=== PATIENT | male | born 1950 | race Caucasian/White ===

== ENCOUNTER → 2016-07-26 | Outpatient (CLI) | payer MEDICARE, BC ==
[~2016-07-26] MED LIST: ACET-2890 PO; ASPI-917 PO; CHOL20002 PO; GABA-305 PO; MELO-267 PO; MULT1TAB69 PO; OXYC5TAB84 PO
--- NOTE | 2016-07-26 12:41 | DI ---
Indication: ITS.REASON: M25.552 LEFT HIP PAIN PROCEDURE: CT PELVIS W/O CONTRAST: Encounter: Initial Comparison: None Technique: Axial noncontrast CT imaging through the pelvis with coronal and sagittal two-dimensional reformats. Automated Exposure Control and Iterative Reconstruction dose reducing techniques were utilized. Findings: Exam is performed for prosthetic planning purposes. There is degenerative change in the visualized lower lumbar spine with a large small node deforming the inferior endplate of L4. Mild degenerative change in the sacroiliac joints. No acute fracture. Severe osteoarthritis in the left hip with a [id number] appearance, subchondral sclerosis and cyst formation with flattening and deformity of the left femoral head. Degenerative change in the acetabulum on the left as well. Right hip joint space is maintained with very minimal degenerative change present. No lytic or blastic osseous lesions appreciated. The visualized portions of the knees show a left knee replacement causing metallic artifact. Impression: Planning CT as above. .
== END ==
LOC: IMA 11:14
PROVIDERS: ATTEND Orthopaedic Surgery
DX: M16.12 Unilateral primary osteoarthritis, left hip (principal); M51.36 Other intervertebral disc degeneration, lumbar region; M53.3 Sacrococcygeal disorders, not elsewhere classified; Z96.652 Presence of left artificial knee joint; M25.552 Pain in left hip

== ENCOUNTER 2016-08-08 08:02 | Inpatient (IN) ==
[2016-08-09] MEDS ORDERED: SALINE FLUSH 10ml SYRINGE IVF PRN (10:54)
== END 2016-08-09 13:50 | disposition home or self-care (01) | DRG 470 ==
LOC: SRG 08:02
PROVIDERS: ADMIT Orthopaedic Surgery; ATTEND Orthopaedic Surgery

== ENCOUNTER 2016-12-26 07:30 | Inpatient (IN) ==
[~2016-12-26 07:30] MED LIST changes: -ACET-2890 PO; +ACETAMINOPHEN 500 MG TABLET PO ONE; -ASPI-917 PO; -CHOL20002 PO; +DEXAMETHASONE 4 MG/ML INJECTION IVP ONE; +FAMOTIDINE PB 20 MG/50 ML BAG IV ONE; -GABA-305 PO; +LIDOCAINE 1% (10mg/ml) 2mL INJ PF SDV ID ONE; -MELO-267 PO; +METOCLOPRAMIDE 10mg/2ml INJECTION IVP ONE; -MULT1TAB69 PO; +NOZIN NASAL SWAB NAS ONE; +ONDANSETRON 4 MG/2 ML INJECTION IVP ONE; -OXYC5TAB84 PO; +TRANEXAMIC ACID 1,000 MG in NS 100 ML IV ONE
[2016-12-26] MEDS ORDERED: EPINEPHrine 0.25 MG, BUPIVACAINE 0.25% PF 30 ML, MORPHINE SULFATE 15 MG, KETOROLAC INJ ... OPSITE ONE (08:00)
[2016-12-26 08:20] VITALS: BMI 41.8
[2016-12-26] MEDS ORDERED: CEFAZOLIN 1 G INJECTION IVP ONE (08:51)
[2016-12-26] MEDS: LR 1,000 ML IV SCH ×2 (09:10→11:20)
--- NOTE | 2016-12-26 09:37 | Anesthesia Preoperative Report ---
Anesthesia Preoperative Record - Date and Time Date: 12/26/16 Preoperative Diagnosis: Rt DEBORAH (RA) M16.11 NPO Since Date: 12/25/16 NPO Since Time: 00:00 Allergies/Adverse Reactions: Allergies Allergy/AdvReac Type Severity Reaction Status Date / Time No Known Allergies Allergy Verified 12/13/16 11:33 - Vital Signs Vital Signs: Temperature 98.7 F 12/26/16 08:20 Pulse Rate 53 L 12/26/16 08:36 Respiratory Rate 20 12/26/16 08:20 Blood Pressure 159/67 H 12/26/16 08:20 Pulse Oximetry 97 12/26/16 08:20 Height and Weight: Height 1.73 m Weight 125 kg Body Mass Index 41.8 - Medications Inpatient Medications: Current Medications Lactated Ringer's (Lactated Ringers) 1,000 mls @ 50 mls/hr IV .Q20H NICHOLAS Last Admin: 12/26/16 09:10 Dose: 50 mls/hr Epinephrine HCl 0.25 mg/Bupivacaine HCl 30 ml/Morphine Sulfate 15 mg/Ketorolac Tromethamine 60 mg/Sodium Chloride 65.25 mls @ 1 mls/hr OPSITE INTRAOP ONE PRN Reason: Protocol Stop: 12/29/16 01:14 Sodium Chloride (Iv Flush) 10 - 80 ml IV PRN PRN PRN Reason: Flushing Home Medications: Home Medications Medication Instructions Recorded Confirmed Type Gabapentin 1 tab PO QID #0 05/11/16 12/26/16 History Multivitamin [Multivitamins] 1 tab PO DAILY #0 05/11/16 12/26/16 History Cholecalciferol (Vitamin D3) 4,000 unit PO DAILY #0 05/16/16 12/26/16 History [Vitamin D3] Mapap ES 500 mg capsule 500 mg PO Q6H PRN 09/20/16 12/26/16 History aspirin 81 mg tablet,delayed 81 mg PO DAILY tab 09/20/16 12/25/16 History release Is Patient on Beta Bette?: No - Medical History Respiratory: Reports: Sleep Apnea (uses CPAP) Cardiovascular: Reports: Hypertension (pre op) Gastrointestional: Reports: Morbid Obesity (BMI 41.9) Neuro/Musculoskeletal: Reports: Back Problems (arthritis), Other (neuropathy, history of OA. ) - Surgical History Respiratory Surgery/Treatments: Reports: CPAP Use GI Surgery/Treatments: Reports: Appendectomy, Cholecystectomy Musculoskeletal Surgery/Tx: Reports: Total Hip Replacement (left DEBORAH ), Total Knee Replacement (left TKA) Anesthesia Reactions: Other (collapse lung under general anesthesia.) Hx Family Anesthesia Reaction: No History of Motion Sickness: No - Social History Smoking Status: Never smoker Hx Chewing Tobacco Use: No Second Hand Exposure: No Substance Use Type: does not use Alcohol Intake Frequency: does not drink - Pertinent Findings EKG: Sinus Bradycardia - Physical Exam Respiratory Exam: Present: lungs clear Cardiovascular Exam: Present: regular rate and rhythm - Airway Assessment Mallampati Score: III TMD: 3 Fingerbreadths Neck Extension: poor (short thick neck) Teeth: chipped teeth/crowns Adult Head Mouth w/Numbe Teeth: 1 - chipped Overall Assessment: may be difficult mask vent (facial hair), may be difficult intubation (morbidly obese) - ASA ASA Score: 3 - Plan Plan: SAB vs GA Anesthesia: General Inhalation Gases, Neuroaxial - Discussion Discussion: Discussed risks/options/alternatives of anesthesia and questions answered. Patient consents. Nursing pain assessment noted. Present for Discussion: family member Attestation Statement: Prior to the delivery of any anesthetic medication, I examined the patient, developed the plan, obtained the patient's consent and discussed the risk and benefits of the procedure with the patient/guardian. - Additional Information Seen by Anesthesia: Yes
[2016-12-26] MEDS ORDERED: VANCOMYCIN 1,000 MG INJECTION ONE (09:47)
[2016-12-26] MEDS ORDERED: MIDAZOLAM 2mg/2ml INJECTION ONE (10:06)
[2016-12-26] MEDS ORDERED: FentaNYL 100 MCG/2 ML INJECTION ONE (10:06)
[2016-12-26] MEDS ORDERED: PROPOFOL 500 MG/50 ML VIAL IV ONE ×3 (10:07→11:43)
[2016-12-26] MEDS ORDERED: VANCOMYCIN 1,000 MG INJECTION IAR ONE (11:56)
[2016-12-26] MEDS ORDERED: ONDANSETRON 4 MG/2 ML INJECTION IVP PRN ×2 (12:07→13:03)
[2016-12-26] MEDS ORDERED: HYDROMORPHONE 2 MG/ML INJECTION IVP PRN (12:07)
--- NOTE | 2016-12-26 12:09 | Operative Note ---
- Procedure Preoperative Diagnosis: Right hip primary degenerative joint disease Postoperative Diagnosis: Same as preoperative diagnosis. Surgeon: Sunshine Soares MD Records Analysis Manager: Vic Reyes Complications: None. Anesthesia: Spinal. Estimated Blood Loss: See Anesthesia Record. Fluids: Please see Anesthesia Record. Description of Procedure: Mr. Torres and his right hip were identified and marked in the preoperative holding area. He was brought back to the operating suite and spinal anesthetic was administered. He was then placed in a lateral decubitus position with his right hip up. The right lower extremity was prepped and draped in my normal sterile fashion. Timeout was performed. The [employer] robotic arm was used to assist with the surgery. A pelvic array was placed into the iliac crest through three 1 cm incisions. A posterior approach was utilized. An approximately 15 cm incision was made in the skin and dissection carried down to the muscle fascia which was then split in line with skin incision. A checkpoint was placed in the greater trochanter. The short external rotators were identified and tagged and detached. A capsulotomy was performed and the hip dislocated. A femoral neck osteotomy was performed at the pre-templated level measuring down from the femoral head 60 mm. The head was removed and acetabulum exposed. Labrum was removed. The acetabulum was then registered with the robot. The robotic arm was then used to ream with a 53 reamer. The robot then was again used to place a 54 Trident cup in 40 of tilt and 25 of anteversion. A liner was then placed. The proximal femur was exposed and prepared with a cookie cutter followed by reaming and broaching to a size 4. We trialed with a 2.5 Head. After thorough irrigation a final Accolade 2 size 4 stem with 127 neck was placed it sat a little proud so we downsized the head. Leg length and offset were checked with the robot and were good. A final 0 ceramic head was placed and the hip reduced. Betadine solution was used to irrigate throughout the case. It was followed by normal saline irrigation. Joint cocktail was injected throughout soft tissue. The capsulotomy was repaired with Ethibond. Short external rotators were also repaired with Ethibond. 1 g of vancomycin powder was placed into the wound. The muscle fascia was then repaired with #1 Vicryl. I then left my school psychologist assistant to close the subcutaneous tissue with 2-0 Vicryl followed by running 4-0 Monocryl skin followed by Dermabond and a sterile dressing. The patient with any placed back into supine position and taken to recovery room in the care of anesthesia.
[2016-12-26] MEDS ORDERED: LORazepam 1 MG TABLET PO PRN (13:03)
[2016-12-26] MEDS ORDERED: NAPROXEN 220 MG TABLET PO PRN (13:03)
[2016-12-26] MEDS ORDERED: DiphenhydrAMINE 50 MG/ML INJECTION IVP PRN (13:03)
[2016-12-26] MEDS ORDERED: NOZIN NASAL SWAB NAS ONE (13:03)
[2016-12-26] MEDS ORDERED: DiphenhydrAMINE 25 MG CAPSULE PO PRN (13:03)
--- NOTE | 2016-12-26 13:14 | Anesthesia Postoperative Note ---
- Date and Time Date: 12/26/16 Time: 13:12 - Status Patient Participated in Evaluation: Patient Participated in Person Vital Signs: Temperature 97.0 F 12/26/16 13:06 Pulse Rate 68 12/26/16 13:06 Respiratory Rate 16 12/26/16 13:06 Blood Pressure 152/66 H 12/26/16 13:06 Pulse Oximetry 98 12/26/16 13:06 Respiratory Function: Airway Patent, Regular Respirations Cardiovascular Function: Regular Pulse Mental Status: Alert and Oriented Pain Intensity: 0 Hydration: IV Infusing Complications During Recover: None Apparent Post Anesthesia Care Notes: block level at L4-5 - Follow-Up Instructions Instructions: Per Surgeon
[2016-12-26] MEDS: ACETAMINOPHEN 325 MG TABLET PO SCH ×3 (13:26→20:04)
[2016-12-26] MEDS: GABAPENTIN 600 MG TABLET PO SCH ×3 (13:27→20:05)
[2016-12-26] MEDS: NS 1,000 ML IV SCH (13:32)
[2016-12-26] MEDS ORDERED: FALL RISK - PHARMACY CONSULT XX ONE (13:53)
[2016-12-26] MEDS ORDERED: SALINE FLUSH 10ml SYRINGE IV PRN (14:05)
[2016-12-26] MEDS: NOZIN NASAL SWAB NAS SCH ×3 (14:45→23:37)
--- NOTE | 2016-12-26 15:00 | XRay Report ---
Indication: postoperative image PROCEDURE: XR pelvis w/ 1 view RT hip: Encounter: Initial Comparison: Pelvis radiograph dated September 20, 2016 Findings: Postoperative changes of right total hip replacement are seen. There is expected postoperative subcutaneous gas. No evidence of hardware failure or acute fracture. No retained radiopaque surgical instruments or sponges seen. Existing left hip prosthesis appears stable. Impression: New right total hip prosthesis without evidence of immediate complication. .
[2016-12-26] MEDS: Oxycodone *IR* 5 MG TABLET PO PRN ×2 (16:41→22:46)
[2016-12-26] MEDS: CEFAZOLIN 2 G in NS 100 ML IV SCH (18:22)
[2016-12-26] MEDS: ASPIRIN *EC* 81 MG TABLET PO SCH (20:04)
[2016-12-26] MEDS: DOCUSATE SODIUM 100 MG CAPSULE PO SCH (20:05)
[2016-12-26] MEDS ORDERED: SENNOSIDES 8.6 MG TABLET PO SCH (21:00)
[2016-12-27 00:13] VITALS: RESP 18
[2016-12-27] MEDS ORDERED: HYDROCODONE/APAP 5mg/325mg TABLET PO PRN (00:14)
[2016-12-27] MEDS: NS 1,000 ML IV SCH (01:17)
[2016-12-27] MEDS: CEFAZOLIN 2 G in NS 100 ML IV SCH (01:17)
[2016-12-27] MEDS: NOZIN NASAL SWAB NAS SCH ×2 (06:45→13:00)
[2016-12-27] MEDS: DOCUSATE SODIUM 100 MG CAPSULE PO SCH (08:15)
[2016-12-27] MEDS: GABAPENTIN 600 MG TABLET PO SCH ×2 (08:15→13:00)
[2016-12-27] MEDS: ACETAMINOPHEN 325 MG TABLET PO SCH ×2 (08:15→13:00)
--- NOTE | 2016-12-27 08:18 | Orthopedic Progress Note ---
Date: Subjective/Severity of Illness: Doing well. Tolerating activity well. No CV or Resp complaints. Pain is controlled. Complains of too many interruptions overnight. Slept 2 minutes at a time. Orthopedic Objective PO Vital signs: Temperature 95.9 F L 12/27/16 03:53 Pulse Rate 58 L 12/27/16 03:53 Respiratory Rate 18 12/27/16 03:53 Blood Pressure 132/67 12/27/16 03:53 Pulse Oximetry 97 12/27/16 03:53 Height and Weight: Height 5 ft 8 in Weight 275 lb 9.245 oz Body Mass Index 41.8 - Constitutional General Appearance: Present: alert, no acute distress, morbidly obese - Respiratory Exam Present: non-labored - Extremities Exam Extremities: Present: pulses intact, normal capillary refill. Absent: calf tenderness - Surgical Site Incision: Mepilex dressing intact, dressing intact, no drainage - Integumentary Exam Present: pink, warm, dry - Neurological Exam Present: intact to light touch, no deficits - Psychiatric Exam Present: alert, normal affect - Labs Result Diagrams: 12/27/16 04:00 12/27/16 04:00 Abnormal lab results 12/27/16 12/27/16 Range/Units 04:00 04:00 WBC 14.2 H (4.5-11.0) T/MM3 RBC 3.82 L (4.50-5.90) M/MM3 Hgb 12.5 L (13.5-17.5) GM/DL Hct 35.4 L (41-53) % BUN 22.0 H (9-20) MG/DL BUN/Creatinine Ratio 28 H (6-26) RATIO Glucose 127 H (75-110) MG/DL H & H 12/27/16 Range/Units 04:00 Hgb 12.5 L (13.5-17.5) GM/DL Hct 35.4 L (41-53) % Orthopedic Assessment and Plan (1) Primary osteoarthritis of right hip Status: Acute Assessment and Plan: Current anti-coagulation protocol for VTE prophylaxis. SCD's. PT/OT services to improve independent function. Discharge Planning per Case Management. - Anticoagulation Therapy Anticoagulation: other (ASA 81mg BID x 6 weeks.) Hospital Course Summary Disclaimer: The visit summary below is not to be considered part of the above Progress Note.
[2016-12-27] MEDS: ASPIRIN *EC* 81 MG TABLET PO SCH (08:38)
[2016-12-27] MEDS ORDERED: POLYETHYL GLYCOL 3350 17gm PACKET PO SCH (09:00)
[2016-12-27] MEDS: Oxycodone *IR* 5 MG TABLET PO PRN ×2 (09:41→13:15)
[2016-12-27 10:47] VITALS: BP 130/70; PULSE 57; TEMP 97.3; O2SAT 99
--- NOTE | 2016-12-27 12:00 | Discharge Summary ---
Orthopedic Discharge Info Date of admission: 12/26/16 08:00 Primary care physician: David Lozano MD Attending Physician: Lai Soares MD Consults: 12/26/16 08:23 Consult to Anesthesiology [CONS] Routine Consulting Provider: DAVID Sanchez Reason For Exam: Preoperative Assessment 12/26/16 13:03 Case Management Consult [CONS] Routine Reason For Exam: Discharge Planning [facility] [CONS] Routine Height: 5 ft 8 in Weight: 275 lb 9.245 oz Comment: change dressing in 2 weeks Total Joint Outpatient Therapy [CONS] Routine Comment: change dressing in 2 weeks - Discharge Diagnosis (1) Primary osteoarthritis of right hip Status: Acute - Procedures Procedures: Procedures Right DEBORAH Robotic Assisted Procedure of Lower Extremity, Open Approach (08/08/16) - Laboratory Result Diagrams: 12/27/16 04:00 12/27/16 04:00 Laboratory: Abnormal lab results 12/27/16 12/27/16 Range/Units 04:00 04:00 WBC 14.2 H (4.5-11.0) T/MM3 RBC 3.82 L (4.50-5.90) M/MM3 Hgb 12.5 L (13.5-17.5) GM/DL Hct 35.4 L (41-53) % BUN 22.0 H (9-20) MG/DL BUN/Creatinine Ratio 28 H (6-26) RATIO Glucose 127 H (75-110) MG/DL H & H 12/27/16 Range/Units 04:00 Hgb 12.5 L (13.5-17.5) GM/DL Hct 35.4 L (41-53) % Orthopedic Discharge HPI - HPI Comments This patient was admitted for elective surgical tx of end stage degenerative joint disease that failed to respond to conservative treatment. Further details of this is found in the admission H&P. Orthopedic Hospital Course Ongoing care required?: No Comments: After appropriate preoperative clearance and signing of operative consent, the patient was given IV antibiotics, according to orthopedic protocol. The patient was taken to the operating room and underwent elective joint arthroplasty. Following surgery, antibiotics were discontinued less than 24 hours according to joint protocol. Appropriate anticoagulants were initiated and SCDs added for DVT prevention. The dressing was clean, dry, and intact. Pain control was obtained via multimodal approach. Bowel motivation addressed with scheduled and PRN medications. Early mobilization was initiated through PT services. Discharge arrangements made by a collaborative effort between the patient and Case Management. Follow-up is scheduled in 2-3 weeks. Discharge instructions given by orthopedic providers and nursing staff at discharge. Discharge condition was good. Discharge Plan - Med Rec/Dispo Referrals/Follow Up: Lai Soares MD [Physician] - 01/17/17 10:00 am [facility] Instructions: [facility] Postop Instructions Additional Instructions: [facility] ON 12/28/2016 AT 12:45PM FOR PHYSICAL THERAPY EVAL. PHONE Prescriptions: New Acetaminophen [Tylenol] 650 mg PO QID #100 tab Aspirin *EC* [Ecotrin] 81 mg PO BID #84 tab Naproxen [Aleve] 440 mg PO BID PRN #60 tab PRN Reason: Pain Oxycodone *IR* [Roxicodone *Ir*] 5 - 15 mg PO Q3H PRN #60 tab PRN Reason: Breakthrough Pain Continue Multivitamin [Multivitamins] 1 tab PO DAILY #0 Cholecalciferol (Vitamin D3) [Vitamin D3] 4,000 unit PO DAILY #0 Gabapentin 1 tab PO QID #0 Discontinued Mapap ES 500 mg capsule 500 mg PO Q6H PRN PRN Reason: Pain aspirin 81 mg tablet,delayed release 81 mg PO DAILY tab - Disposition 01 Discharged Home, Self-Care
[2016-12-27] MEDS ORDERED: SENNOSIDES 8.6 MG TABLET PO PRN (12:33)
[2016-12-28] MEDS ORDERED: BISACODYL 10 MG SUPPOSITORY RECTALLY SCH (20:00)
== END 2016-12-27 13:10 | disposition home or self-care (01) | DRG 470 ==
LOC: SRG 08:00
PROVIDERS: ADMIT Orthopaedic Surgery; ATTEND Orthopaedic Surgery